=== PATIENT | male | born 1980 | race Two or more races ===

== ENCOUNTER 2019-05-19 19:46 | Emergency (ER) | payer OTHER ==
[~2019-05-19] VITALS: Ht 180.3 cm; Wt 81.6 kg
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
[2019-05-19 20:05] VITALS: BP 140/74
--- NOTE | 2019-05-19 20:36 | Diagnostic Imaging Report ---
Indication: Headache Technique: Contiguous 5 mm thick transaxial imaging of the head obtained in a Siemens Sensation [address] scanner. Soft tissue and bone windows generated. Automatic Exposure Control was utilized. Total Dose length Product (DLP): 1152.4mGycm CT Dose Index Volume (CTDIvol): 53.4 mGy Comparison: none Findings: The size and configuration of the cortical sulci, basal cisterns, and ventricles are within normal limits for age. There is no mass effect, midline shift, or edema identified. There is no evidence of acute hemorrhage or abnormal intra-axial or extra-axial fluid collections. The bones and soft tissues are unremarkable. The frontal sinuses in the anterior ethmoid appear opacified. There is scalp swelling over the left side of the calvarium. Impression: No mass effect, edema or acute bleed. Left scalp contusion Sinusitis The CT scanner at [facility] is accredited by the [employer] and the scans are performed using dose optimization techniques as appropriate to a performed exam including Automatic Exposure control.
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
[2019-05-19] MEDS ORDERED: IBUPROFEN600 MG ORAL (20:53)
[2019-05-19 22:30] VITALS: BP 134/78
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
[2019-05-19 22:50] VITALS: BP 134/78
--- NOTE | 2019-05-19 22:50 | NUR ---
ED Nurse Note: Pt cleared by health care Provider for discharge. DC instructions/prescription was given and explained to pt and verbalized understanding of teachings. Instructed pt to follow up with [facility] care physican within one week for further care. All medical deviecs such as ID band removed. Pt is AAO x4, ambulatory and left with all personal belongings.
--- NOTE | 2019-05-20 12:20 | Diagnostic Imaging Report ---
Indication: Left elbow pain Findings: 3 views of the left elbow were obtained. No acute fractures, malalignment, erosions or periostitis are identified. Soft tissues are unremarkable. Impression: No acute injury
--- NOTE | 2019-05-20 12:20 | Diagnostic Imaging Report ---
Indication: Dyspnea Comparison: None A single view chest radiograph was obtained. Findings: Interstitial opacities are present within the lungs bilaterally. Lung volumes are low. Heart size is normal. There is minimal platelike atelectasis also present at the left lung base. Bones are unremarkable. IMPRESSION: Interstitial pneumonitis may be present. Correlate clinically
--- NOTE | 2019-05-20 12:57 | Diagnostic Imaging Report ---
Indication: left hand pain. Comparison: None Findings: 3 views of the left hand were obtained. Acute fracture of the mid fourth metacarpal demonstrated. There is also fracture of the fifth and third metacarpals. Soft tissue swelling noted. IMPRESSION: Acute fractures of the third fourth and fifth metacarpals
== END 2019-05-19 22:50 | disposition home or self-care (01) ==
LOC: EDBD 19:46 → EMR 20:36
DX: S09.90XA Unspecified injury of head, initial encounter (principal); Y04.2XXA Assault by strike against or bumped into by another person, initial encounter; Y92.9 Unspecified place or not applicable; S01.01XA Laceration without foreign body of scalp, initial encounter; R22.32 Localized swelling, mass and lump, left upper limb
CPT/HCPCS: 12001; 29125; 70450; 71045; 72125; 73080; 73130; Z7502; 99284